=== PATIENT | female | born 1995 | race Caucasian/White ===

== ENCOUNTER 2016-09-09 07:53 | Emergency (ER) | payer OTHER ==
[2016-09-09 07:59] VITALS: BMI 30.7
--- NOTE | 2016-09-09 08:01 | PDOC ---
History of Present Illness - General Chief Complaint: Pain, Acute Stated Complaint: NECK PAIN Time Seen by Provider: 09/09/16 07:54 History Source: Patient Exam Limitations: No Limitations - History of Present Illness Initial Comments: 09/09/16 08:09 20y F hx of [place] dz, on ocps presents with R sided neck pain. The pt states she was well this morning, was taking a shower and stepped out of the shower and started feeling severe L sided neck pain with movement of her head. Pt states pain shoots up the scalp. denies any numbness/tingling/ weakness of extremities. no neck pain, no falls, no n/v, vision changes, f/c. pt has hx of pinched nerve on contralateral side that was managed with excercises. PMD dr. Chacon Past History - Past Medical History Allergies/Adverse Reactions: Allergies Allergy/AdvReac Type Severity Reaction Status Date / Time No Known Allergies Allergy Verified 09/09/16 07:55 Home Medications: Ambulatory Orders Cyclobenzaprine HCl [Flexeril 10 mg] 10 mg PO BID PRN #14 tablet 09/09/16 Ethynodiol D-Ethinyl Estradiol [Zovia 1-35E Tablet] 1 each PO DAILY 09/09/16 Cardiac Disorders: Yes (Palpitations) - Surgical History Cholecystectomy: Yes (2013) - Psycho/Social/Smoking Cessation Hx Anxiety: No Suicidal Ideation: No Smoking History: Never smoked Information on smoking cessation initiated: No Hx Alcohol Use: Yes (OCCASIONALLY) Drug/Substance Use Hx: No Substance Use Type: None Review of Systems - Review of Systems Able to Perform ROS?: Yes Comments:: 09/09/16 08:11 Constitutional - no reported Fever, Chills, HEENT: no reported vision changes, Abd/GI: no reported nausea, vomiting, : no reported dysuria, frequency, discharge Musculskelatal - +L neck pain no reported lower back pain, joint swelling neurological: no reported headache, numbness, focal weakness, tingling, ataxia, hematologic: + easy bleeding (wvb) no reported anemia, easy bruising, *Physical Exam - Vital Signs Last Vital Signs Temp Pulse Resp BP Pulse Ox 98.2 F 116 H 18 137/94 99 09/09/16 07:54 09/09/16 07:54 09/09/16 07:54 09/09/16 07:54 09/09/16 07:54 - Physical Exam Comments: 09/09/16 08:11 GENERAL: The patient is awake, alert, and fully oriented, tearful due to pain HEAD: Normocephalic, atraumatic. EYES: extraocular movements intact, sclera anicteric, conjunctiva clear. ENT: Normal voice, Moist mucous membranes. NECK: +L sided tenderness to cervical prasinal muscles/trepezius, no midline tenderness, limited ROM due to pain, supple EXTREMITIES: Normal range of motion, no edema. No clubbing or cyanosis. No cords, erythema, or tenderness. NEUROLOGICAL: No facial assymetry, Normal speech, strength 5/5 in upper extremities, sensation intact in upper extremities. SKIN: Warm, Dry, normal turgor, Medical Decision Making - Medical Decision Making 09/09/16 08:13 suspect muscle strain will give toradol/valium will reassess 09/09/16 08:41 pt feeling improved will recheck her HR as suspect her tachycardia was secondary to discomfort will give flexeril, ibuprofen and supportive care I discussed the physical exam findings, ancillary test results and final diagnoses with the patient. I answered all of the patient's questions. The patient was satisfied with the care received and felt comfortable with the discharge plan and treatment plan. The patient will call their primary care physician within 24 hours to arrange follow-up and will return to the Emergency Department with any new, persistent or worsening symptoms. 09/09/16 08:44 rpeat HR 86 *DC/Admit/Observation/Transfer Diagnosis at time of Disposition: Neck muscle strain Qualifiers: Encounter type: initial encounter Qualified Code(s): S16.1XXA - Strain of muscle, fascia and tendon at neck level, initial encounter - Discharge Dispostion Disposition: HOME Condition at time of disposition: Improved Admit: No - Prescriptions Prescriptions: Cyclobenzaprine HCl [Flexeril 10 mg] 10 mg PO BID PRN #14 tablet PRN Reason: Pain - Patient Instructions Printed Discharge Instructions: DI for Neck Pain Additional Instructions: Return to the emergency department immediately with ANY new, persistent or worsening symptoms. Take ibuprofen or Tylenol every 6 hours as needed for pain Take the Flexeril prescribed Use a heating pad for comfort. Avoid sports and heavy lifting for atleast 3 days. You MUST call and follow up with your doctor in 3-4 days for further evaluation of your symptoms. Results were discussed with you. Please make sure your doctor reviews the results of your emergency evaluation. Print Language: PARAGUAY[place]
[2016-09-09] MEDS ORDERED: diazePAM 5 MG TABLET PO ONE (08:08)
[2016-09-09] MEDS ORDERED: KETOROLAC TROMETHAMINE 60 MG/2 ML VIAL IM ONE (08:08)
[2016-09-09] MEDS ORDERED: diazePAM 5 MG TABLET ONE (08:14)
[2016-09-09] MEDS ORDERED: KETOROLAC TROMETHAMINE 60 MG/2 ML VIAL ONE (08:14)
[2016-09-09 08:54] VITALS: BP 130/88; PULSE 86; TEMP 98.1
== END 2016-09-09 09:02 | disposition home or self-care (01) ==
LOC: FER 07:53
PROC: 3E0233Z Introduction of Anti-inflammatory into Muscle, Percutaneous Approach (ICD-10-PCS; principal; 2016-09-09)
DX: S16.1XXA Strain of muscle, fascia and tendon at neck level, initial encounter (principal); X58.XXXA Exposure to other specified factors, initial encounter; Y93.9 Activity, unspecified; Y92.9 Unspecified place or not applicable; D68.0 Von Willebrand disease
CPT/HCPCS: 99282-25

== ENCOUNTER 2021-02-06 16:40 | Emergency (ER) | payer OTHER ==
[2021-02-06 17:06] VITALS: TEMP 98.1; BMI 28.2
[2021-02-06] MEDS ORDERED: predniSONE 20 MG TABLET (UD) PO ONE (17:16)
[2021-02-06] MEDS ORDERED: predniSONE 20 MG TABLET (UD) ONE (17:19)
[2021-02-06 17:34] VITALS: BP 138/96; PULSE 86
== END 2021-02-06 17:35 | disposition home or self-care (01) ==
LOC: FER 16:40
DX: L29.9 Pruritus, unspecified (principal); L20.9 Atopic dermatitis, unspecified
CPT/HCPCS: 99283-25

== ENCOUNTER 2021-07-24 15:07 | Emergency (ER) | payer OTHER ==
[2021-07-24] MEDS ORDERED: SODIUM CHLORIDE 0.9% 500 ML INFUS.BAG IV ONE ×2 (15:28→18:18)
[2021-07-24 15:30] VITALS: BMI 30.7
[2021-07-24 15:52] LABS: HEMATOCRIT 38.5 % (32.4-45.2); HEMOGLOBIN 13.8 G/dL (10.7-15.3); MCH 30.8 pg (25.7-33.7); MCHC 35.9 g/dl (32.0-36.0); MEAN CELL VOLUME 85.9 fl (80-96); MEAN PLT VOLUME 6.5 fl (7.5-11.1); PLATELET COUNT 328.9 10^3/uL (134-434); RBC 4.48 10^6/uL (3.60-5.2); RDW 14.2 % (11.6-15.6); WHITE BLOOD COUNT 15.7 10^3/uL (4.0-10.8)
[2021-07-24 16:10] LABS: ALBUMIN 4.1 g/dl (3.4-5.0); BILIRUBIN,TOTAL 0.3 mg/dl (0.2-1); CALCIUM 9.4 mg/dl (8.5-10); CREATININE 0.7 mg/dl (0.55-1.3); TOT PROT 7.4 g/dl (6.4-8.2)
[2021-07-24 16:27] LABS: HCG,QUALITATIVE URINE Negative
[2021-07-24] MEDS ORDERED: ACETAMINOPHEN 500 MG TABLET (FP) PO ONE (16:40)
[2021-07-24] MEDS ORDERED: ACETAMINOPHEN 500 MG TABLET (FP) ONE (16:49)
[2021-07-24 16:56] LABS: EPITHELIAL CELLS MODERATE /hpf
[2021-07-24 17:29] VITALS: TEMP 98.5
[2021-07-24 18:42] LABS: PLATELET ESTIMATE ADEQUATE
[2021-07-24 20:22] VITALS: BP 135/88; PULSE 96
== END 2021-07-24 20:37 | disposition home or self-care (01) ==
LOC: FER 15:07
DX: R00.0 Tachycardia, unspecified (principal); F41.9 Anxiety disorder, unspecified
CPT/HCPCS: 36415; 71045-TC-FY; 80053; 81003; 81015; 84443; 84484; 84703; 85027; 93005; 99285-25